=== PATIENT | male | born 1980 | race Caucasian/White ===

== ENCOUNTER 2021-10-16 17:21 | Emergency (ER) | payer OTHER ==
[~2021-10-16] VITALS: Ht 175.3 cm; Wt 118.0 kg
[2021-10-16] MEDS ORDERED: IBUP-2028 MT (17:48)
[2021-10-16 18:00] VITALS: BP 135/85
== END 2021-10-16 18:01 | disposition home or self-care (01) ==
LOC: ER 17:21
DX: S93.491A Sprain of other ligament of right ankle, initial encounter (principal); X58.XXXA Exposure to other specified factors, initial encounter; Y93.89 Activity, other specified; Y92.89 Other specified places as the place of occurrence of the external cause; Y99.8 Other external cause status
CPT/HCPCS: 99282

== ENCOUNTER 2021-10-22 18:30 | Emergency (ER) | payer OTHER ==
[~2021-10-22] VITALS: Ht 175.3 cm; Wt 73.0 kg
[~2021-10-22 18:30] MED LIST: IBUP-2028 MT
[2021-10-22 18:37] VITALS: BP 134/77
== END 2021-10-22 19:06 | disposition home or self-care (01) ==
LOC: ER 18:30
DX: Z53.21 Procedure and treatment not carried out due to patient leaving prior to being seen by health care provider (principal)

== ENCOUNTER 2021-11-09 17:54 | Emergency (ER) | payer OTHER ==
[~2021-11-09] VITALS: Ht 175.3 cm; Wt 118.0 kg
[2021-11-09 18:08] VITALS: BP 132/96
== END 2021-11-09 17:59 | disposition left against medical advice (07) ==
LOC: ER 17:54
DX: Z53.21 Procedure and treatment not carried out due to patient leaving prior to being seen by health care provider (principal)

== ENCOUNTER 2022-01-18 11:03 | Emergency (ER) | payer OTHER ==
[~2022-01-18] VITALS: Ht 175.3 cm; Wt 118.0 kg
[2022-01-18] MEDS ORDERED: LIDOCAINE HCL/PF 1% 10 MG/ML 5ML VIAL INFIL ONE (12:45)
[2022-01-18] MEDS ORDERED: IBUPROFEN 600MG TABLET PO STA (12:45)
[2022-01-18] MEDS ORDERED: BACITRACIN ZINC OINT UDPKT TOP ONE (12:45)
[2022-01-18] MEDS ORDERED: SULF1TAB48 PO (14:36)
[2022-01-18] MEDS ORDERED: AMOX1TAB16 PO (14:36)
[2022-01-18] MEDS ORDERED: IBUP-2029 PO (14:36)
[2022-01-18 15:18] VITALS: BP 112/75
== END 2022-01-18 15:21 | disposition home or self-care (01) ==
LOC: ER 11:03
DX: L02.512 Cutaneous abscess of left hand (principal)
CPT/HCPCS: 99283; J3490

== ENCOUNTER 2022-08-13 11:32 | Emergency (ER) | payer MEDICAID, OTHER ==
[~2022-08-13] VITALS: Ht 175.3 cm; Wt 118.0 kg
[~2022-08-13 11:32] MED LIST changes: +AMOX1TAB16 PO; +IBUP-2029 PO; +SULF1TAB48 PO
[2022-08-13 11:41] VITALS: BP 128/82
[2022-08-13] MEDS ORDERED: LOPE2TAB26 MT ×3 (12:58→12:59)
== END 2022-08-13 13:48 | disposition home or self-care (01) ==
LOC: ER 11:32
DX: A08.4 Viral intestinal infection, unspecified (principal); Z79.899 Other long term (current) drug therapy
CPT/HCPCS: 99282

== ENCOUNTER 2022-09-13 17:56 | Emergency (ER) | payer MEDICAID, OTHER ==
[~2022-09-13] VITALS: Ht 175.3 cm; Wt 118.0 kg
[~2022-09-13 17:56] MED LIST changes: +LOPE2TAB26 MT
[2022-09-13 17:58] VITALS: BP 159/96
== END 2022-09-13 19:30 | disposition home or self-care (01) ==
LOC: ER 17:56
DX: J06.9 Acute upper respiratory infection, unspecified (principal); I10 Essential (primary) hypertension; Z20.822 Contact with and (suspected) exposure to COVID-19; Z68.38 Body mass index [BMI] 38.0-38.9, adult
CPT/HCPCS: 87426; 99283; C9803

== ENCOUNTER 2024-05-26 18:19 | Emergency (ER) | payer MEDICAID ==
[~2024-05-26] VITALS: Ht 175.3 cm; Wt 113.9 kg
[2024-05-26 18:22] VITALS: O2SAT 99
[2024-05-26 18:37] VITALS: BP 114/72; PULSE 85; RESP 12; O2SAT 97
[2024-05-26 21:15] VITALS: TEMP 98.9
[2024-05-26] MEDS ORDERED: ACETAMINOPHEN 325MG TABLET PO ONE (21:15)
[2024-05-26] MEDS: ACETAMINOPHEN 325MG TABLET PO NR (21:15)
== END 2024-05-27 01:30 | disposition home or self-care (01) ==
LOC: ER 18:19
DX: B34.9 Viral infection, unspecified (principal)
CPT/HCPCS: 87070; 87430; 99283

== ENCOUNTER 2024-10-15 18:13 | Emergency (ER) | payer MEDICAID, OTHER ==
[~2024-10-15] VITALS: Ht 180.3 cm; Wt 86.3 kg
[2024-10-15 18:16] VITALS: O2SAT 100
[2024-10-15 19:04] LABS: EOSINOPHILS % 0.3 % (0.0-5.0); HEMATOCRIT. 46.1 % (42.0-52.0); HEMOGLOBIN. 15.4 g/dL (14.0-18.0); LYMPHOCYTES % 10.6 % (20.0-50.0); MEAN CORPUSCULAR HEMOGLOBIN 29.9 pg (28.0-32.0); MEAN CORPUSCULAR HGB CONC 33.3 g/dL (31.0-37.0); MEAN CORPUSCULAR VOLUME 89.9 fL (80.0-94.0); MEAN PLATELET VOLUME 8.3 fl (7.4-10.4); MONOCYTES % 7.4 % (2.0-8.0); NEUTROPHILS % 81.7 % (40.0-76.0); PLATELET 223 x1000/uL (130-400); RED BLOOD CELL COUNT 5.13 mill/uL (4.7-6.1); RED CELL DISTRIBUTION WIDTH 13.2 % (11.6-14.6); WHITE BLOOD COUNT 5.5 x1000/uL (4.5-11.0)
[2024-10-15 19:15] LABS: CHLORIDE 109 mEq/L (98-107); POTASSIUM 4.1 mEq/L (3.5-5.1); SODIUM 141 mEq/L (136-145)
[2024-10-15 19:16] LABS: CARBON DIOXIDE 28 mEq/L (21-32)
[2024-10-15 19:21] LABS: GLUCOSE 98 mg/dL (70-105); UREA NITROGEN BLOOD 14 mg/dL (9-23)
[2024-10-15 20:46] LABS: CLARITY URINE CLEAR (CLEAR); COLOR URINE DARK YELLOW (YELLOW); GLUCOSE URINE NEGATIVE (NEGATIVE); KETONES URINE TRACE (NEGATIVE); LEUKOCYTE ESTERASE URINE NEGATIVE (NEGATIVE); NITRITE URINE NEGATIVE (NEGATIVE); OCCULT BLOOD URINE NEGATIVE (NEGATIVE); PROTEIN URINE TRACE (NEGATIVE); SPECIFIC GRAVITY URINE 1.042 (1.005-1.030)
[2024-10-15 20:59] LABS: BACTERIA URINE 1+; RBC URINE NONE SEEN /hpf (0-2); SQUAMOUS EPITHELIAL CELL URINE RARE /lpf (RARE/1+); WBC URINE 0-2 /hpf (0-2)
[2024-10-15 21:49] VITALS: BP 115/73; PULSE 79; RESP 18; TEMP 36.4; O2SAT 100
== END 2024-10-15 21:50 | disposition home or self-care (01) ==
LOC: ER 18:13
DX: R19.7 Diarrhea, unspecified (principal); Z79.899 Other long term (current) drug therapy
CPT/HCPCS: 36415; 80048; 81003; 85025; 99283

== ENCOUNTER 2025-03-29 20:36 | Emergency (ER) | payer MEDICAID ==
[~2025-03-29 20:36] MED LIST changes: +IBUP-1455 PO; -IBUP-2029 PO
== END 2025-03-29 21:11 | disposition left against medical advice (07) ==
LOC: ER 20:36
DX: R05.9 Cough, unspecified (principal); Z53.21 Procedure and treatment not carried out due to patient leaving prior to being seen by health care provider
CPT/HCPCS: 99281

== ENCOUNTER 2025-03-29 21:35 | Emergency (ER) | payer MEDICAID ==
[~2025-03-29] VITALS: Ht 175.3 cm; Wt 88.4 kg
[2025-03-29 21:40] VITALS: O2SAT 98
[2025-03-29 23:33] LABS: CREATININE 1.1 mg/dL (0.6-1.3); UREA NITROGEN BLOOD 15 mg/dL (9-23)
[2025-03-29 23:35] LABS: ASPARTATE AMINOTRANSFERASE 34 IU/L (<34); BILIRUBIN DIRECT 0.2 mg/dL (<=3.0); BILIRUBIN TOTAL 0.8 mg/dL (0.1-1.0); PROTEIN TOTAL 7.4 g/dL (6.0-8.3)
[2025-03-29 23:37] LABS: HEMATOCRIT. 46.9 % (42.0-52.0); HEMOGLOBIN. 15.3 g/dL (14.0-18.0); MEAN PLATELET VOLUME 8.2 fl (7.4-10.4); PLATELET 279 x1000/uL (130-400); RED BLOOD CELL COUNT 5.10 mill/uL (4.7-6.1); RED CELL DISTRIBUTION WIDTH 13.5 % (11.6-14.6)
[2025-03-30] MEDS: POTASSIUM CHLORIDE 20MEQ TABLET SR PO SCH (00:16)
[2025-03-30 01:52] VITALS: BP 127/85; PULSE 69; RESP 16; TEMP 37.1; O2SAT 98
[2025-03-30 01:53] LABS: ATYPICAL LYMPHOCYTES 1; LYMPHOCYTES % MANUAL 32.0 % (20.0-50.0); MONOCYTES % MANUAL 12.0 % (2.0-8.0); NEUTROPHILS % MANUAL 55.0 % (45.0-75.0); PLATELET ESTIMATE NORMAL
== END 2025-03-30 01:55 | disposition home or self-care (01) ==
LOC: ER 21:35
DX: J06.9 Acute upper respiratory infection, unspecified (principal); B97.89 Other viral agents as the cause of diseases classified elsewhere; Z79.899 Other long term (current) drug therapy; Z98.890 Other specified postprocedural states
CPT/HCPCS: 36415; 80048; 80076; 80320; 85025; 99283; G0480

== ENCOUNTER 2025-04-10 17:43 | Emergency (ER) | payer MEDICAID ==
[~2025-04-10] VITALS: Ht 177.8 cm; Wt 109.0 kg
[2025-04-10 17:46] VITALS: O2SAT 98
[2025-04-10 20:42] LABS: CLARITY URINE CLEAR (CLEAR); COLOR URINE YELLOW (YELLOW); GLUCOSE URINE NEGATIVE (NEGATIVE); KETONES URINE NEGATIVE (NEGATIVE); LEUKOCYTE ESTERASE URINE NEGATIVE (NEGATIVE); NITRITE URINE NEGATIVE (NEGATIVE); OCCULT BLOOD URINE NEGATIVE (NEGATIVE); PH URINE 5.5 (4.5-8.0); PROTEIN URINE NEGATIVE (NEGATIVE); SPECIFIC GRAVITY URINE 1.030 (1.005-1.030); UROBILINOGEN URINE 0.2 E.U./dL (0.2-1.0)
[2025-04-10] MEDS ORDERED: LACT1CAP68 MT (20:55)
[2025-04-10] MEDS ORDERED: LACT1TAB14 MT (20:55)
[2025-04-10 21:38] VITALS: BP 117/56; PULSE 66; RESP 18; TEMP 36.8; O2SAT 99
== END 2025-04-10 21:41 | disposition home or self-care (01) ==
LOC: ER 17:52
DX: R19.7 Diarrhea, unspecified (principal); R10.30 Lower abdominal pain, unspecified; Z79.899 Other long term (current) drug therapy; Z98.890 Other specified postprocedural states
CPT/HCPCS: 81003; 99283